=== PATIENT | female | born 1985 | race African-American/Black ===

== ENCOUNTER 2017-02-05 12:28 | Emergency (ER) | payer OTHER ==
[2017-02-05 12:46] VITALS: TEMP 98.5; BMI 28.3
[2017-02-05] MEDS ORDERED: METOCLOPRAMIDE HCL 10 MG TABLET (FP) PO ONE ×2 (13:20→13:35)
[2017-02-05] MEDS ORDERED: IBUPROFEN 600 MG TABLET (FP) PO ONE ×2 (13:20→13:35)
--- NOTE | 2017-02-05 13:20 | PDOC ---
History of Present Illness - General Chief Complaint: Headache Stated Complaint: HEADACHE NASAL PRESSURE Time Seen by Provider: 02/05/17 12:33 History Source: Patient Exam Limitations: No Limitations - History of Present Illness Initial Comments: 02/05/17 13:12 This is a 31 yo F who presents to the ER via EMS due to head congestion Pt states that she awoke 5 days ago with a complaint of left parietal headache She has noted intermittent sharp pain in the posterior portion of her head Pain is rated 4/10, no radiation, minimally improved with Excedrin but it has not gone away She noted sinus pressure She was seen by her PMD today who sent her to the pharmacy for antibiotics and inhaled steroids Pt states that she went to the pharmacy and felt dizzy She went back upstairs to be re evauluated by her PMD and was sent to the ER No fevers or chills No prior headache like this No head trauma No tinnitus No throat pain N rhinorrhea or congesiton 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 HEAD, EYES, EARS, NOSE AND THROAT: No: change in vision, ear pain, discharge, sore throat, throat swelling. CARDIOVASCULAR: No: chest pain, lightheadedness, palpitations, syncope RESPIRATORY: No: cough, shortness of breath, wheezing, hemoptysis, stridor. GASTROINTESTINAL: No: nausea, vomiting, diarrhea, abdominal cramping, rectal bleeding, constipation. GENITOURINARY: No: dysuria, hematuria, frequency, urgency, flank pain. MUSCULOSKELETAL: No: back pain, neck pain, joint pain, muscle swelling or pain SKIN AND BREASTS: No: lesions, pallor, rash or easy bruising. NEUROLOGIC: Yes: headache, dizziness No: vertigo, paresthesias, weakness ENDOCRINE: No: unexplained weight gain or loss HEMATOLOGIC/LYMPHATIC: No: anemia, easy bleeding, swelling nodes. GENERAL: The patient is in no acute distress. HEAD: Normal with no signs of trauma. EYES: PERRLA, EOMI, sclera anicteric, conjunctiva clear. ENT: Ears normal, nares patent, oropharynx clear without exudates. Moist mucous membranes. NECK: Normal range of motion, supple without lymphadenopathy, JVD, or masses. LUNGS: Breath sounds equal, clear to auscultation bilaterally. No wheezes, and no crackles. HEART:Regular rate and rhythm, normal S1 and S2 ? murmur LSB ABDOMEN: Soft, nontender, normoactive bowel sounds. No guarding, no rebound. EXTREMITIES: Normal range of motion, no edema. No clubbing or cyanosis. No erythema, or tenderness. NEUROLOGICAL: Cranial nerves II through XII grossly intact. Normal speech. No focal neurological deficits. MUSCULOSKELETAL: Back non-tender to palpation, no CVA tenderness SKIN: Warm, Dry, normal turgor, no rashes or lesions noted. 02/05/17 13:24 Past History - Past Medical History Allergies/Adverse Reactions: Allergies Allergy/AdvReac Type Severity Reaction Status Date / Time No Known Allergies Allergy Unverified 02/05/17 12:33 Home Medications: Ambulatory Orders D-Methorphan/PE/Acetaminophen [Sudafed PE Pressure+Pain+Cough] 1 each PO TID PRN #30 tablet 02/05/17 Multivit-Min/Iron Fum/Folic AC [Qritx-Gkimpse-Hhicncui Tablet] 1 each PO DAILY 02/05/17 Oxymetazoline HCl [Afrin] 15 ml NS BID PRN #1 spray 02/05/17 Other medical history: DENIES - Psycho/Social/Smoking Cessation Hx Anxiety: No Suicidal Ideation: No Smoking History: Never smoked Information on smoking cessation initiated: No Hx Alcohol Use: No Drug/Substance Use Hx: No Substance Use Type: None *Physical Exam - Vital Signs Last Vital Signs Temp Pulse Resp BP Pulse Ox 98.5 F 112 H 16 140/82 100 02/05/17 12:31 02/05/17 12:31 02/05/17 12:31 02/05/17 12:31 02/05/17 12:31 ED Treatment Course - RADIOLOGY Radiology Studies Ordered: Category Date Time Status HEAD CT WITHOUT CONTRAST [CT] Stat CT Scan 02/05/17 12:41 Ordered Medical Decision Making - Medical Decision Making 02/05/17 13:[address] Will give medications for KIMBLE Will give Sudafed Will re assess 02/05/17 13:53 CT head negative Will discharge to home Pt asked to follow up with ENT and NEuro 02/05/17 13:55 *DC/Admit/Observation/Transfer Diagnosis at time of Disposition: Sinusitis Qualifiers: Sinusitis location: maxillary Chronicity: subacute Qualified Code(s): J01.00 - Acute maxillary sinusitis, unspecified - Discharge Dispostion Disposition: HOME Condition at time of disposition: Stable Admit: No - Prescriptions Prescriptions: Oxymetazoline HCl [Afrin] 15 ml NS BID PRN #1 spray PRN Reason: congestion D-Methorphan/PE/Acetaminophen [Sudafed PE Pressure+Pain+Cough] 1 each PO TID PRN #30 tablet PRN Reason: sinus congestion and pressure - Referrals Referrals: Larry Farrell MD [Staff Physician] - Zhen Locke MD [Staff Physician] - - Patient Instructions Printed Discharge Instructions: DI for Sinusitis, DI for Sinus Headache, DI for Headache Additional Instructions: You can take the medications that were prescribed by your doctor Please add Sudafed and Afrin Monitor yourself for fevers Please continue to take motrin or Excedrin for your headache Return to the emergency department immediately with ANY new, persistent or worsening symptoms. Continue any medications as previously prescribed by your physician. You should follow up with your primary doctor as soon as possible regarding today's emergency department visit. . Please make sure your doctor reviews the results of your emergency evaluation. Thank you for coming to the [facility] today for your care. It was a pleasure to see you today. Please note that your evaluation is INCOMPLETE until you follow-up with your doctor.
[2017-02-05] MEDS ORDERED: PSEUDOEPHEDRINE HCL 30 MG TABLET PO ONE (13:21)
[2017-02-05] MEDS ORDERED: PSEUDOEPHEDRINE HCL 30 MG TABLET ONE (13:35)
[2017-02-05 14:41] VITALS: BP 112/74; PULSE 76
== END 2017-02-05 14:46 | disposition home or self-care (01) ==
LOC: FER 12:28
DX: J01.00 Acute maxillary sinusitis, unspecified (principal)
CPT/HCPCS: 70450-TC; 84703; 99281-25